=== PATIENT | male | born 1995 | race Caucasian/White ===

== ENCOUNTER 2018-05-13 19:52 | Emergency (ER) | payer OTHER ==
[2018-05-13 20:09] VITALS: BP 147/83
--- NOTE | 2018-05-13 20:09 | EDPHY ---
H & P Time Seen by Provider: 05/13/18 20:08 HPI/ROS: Chief complaint. Red painful bump HPI. 22-year-old male with painful red bump on his abdomen for 2 days. Yesterday squeeze of popped it got some pus out but today it has increased in size with expanding redness around the bump. Increase in pain. No fever. No trauma or injury. ROS 10 systems were reviewed and negative with the exception of the elements mentioned in the history of present illness Past Medical/Surgical History: Healthy Social History: Single daily smoker, no alcohol Smoking Status: Heavy smoker Physical Exam: General Appearance: Alert pleasant well-developed male mild distress vital signs stable Eyes: Pupils equal and round no pallor or injection. ENT, Mouth: Mucous membranes are moist. Respiratory: There are no retractions, lungs are clear to auscultation. Cardiovascular: Regular rate and rhythm. Gastrointestinal: Abdomen is soft and nontender, no masses, bowel sounds normal. Neurological: Awake and alert, sensory and motor exams grossly normal. Skin: 2 cm abscess on the right mid abdomen. Surrounding erythema. Musculoskeletal: Neck is supple nontender. Extremities symmetrical, full range of motion. Psychiatric: Patient is oriented X 3, there is no agitation. Constitutional: Initial Vital Signs Temperature (C) 36.9 C 05/13/18 20:05 Heart Rate 84 05/13/18 20:05 Respiratory Rate 16 05/13/18 20:05 Blood Pressure 147/83 H 05/13/18 20:05 O2 Sat (%) 96 05/13/18 20:05 O2 Delivery Mode Room Air Allergies/Adverse Reactions: No Known Allergies Allergy (Unverified 05/13/18 20:06) Home Medications: Medication Instructions Recorded Sulfamethox/Tmp 800/160 mg 1 tab PO BID #10 tab 05/13/18 [Bactrim Ds] Medical Decision Making Procedures: Procedure incision and drainage--after informed consent 1% lidocaine with epinephrine is infiltrated around the abscess. It is incised with a 11. Blade. It is probed with hemostats to break up loculations. It is irrigated with normal saline. Antibiotic ointment and Band-Aid are applied. Patient tolerates the procedure well ED Course/Re-evaluation: Bactrim orally in the ED Patient remained stable. He and I discussed treatment plan including criteria for return importance of follow-up and further evaluation. He expresses understanding and agreement Differential Diagnosis: Abscess on the abdominal wall. Likely MRSA. No evidence for systemic infection - Data Points Medications Given: Discontinued Medications Trimethoprim/Sulfamethoxazole (Bactrim Ds) 1 ea PO EDNOW ONE PRN Reason: Protocol Stop: 05/13/18 20:14 Last Admin: 05/13/18 20:23 Dose: 1 ea Departure - Departure Disposition: Home, Routine, Self-Care Clinical Impression: Abscess Condition: Good Instructions: Abscess (ED) Additional Instructions: Keep the bandage clean and dry. Keep the wound covered for the next 5 days. Daily cleaning with washcloth and water and then apply antibiotic ointment and bandage Bactrim antibiotic twice daily for 5 days Return for worsening symptoms including increased pain and fever Recheck in 2 days if not improving Referrals: NONE *PRIMARY CARE P,. [Primary Care Provider] - As per Instructions Prescriptions: Sulfamethox/Tmp 800/160 mg [Bactrim Ds] 1 tab PO BID #10 tab
[2018-05-13] MEDS ORDERED: SULFAMETHOX/TMP 800/160 MG 1 TAB PO ONE (20:13)
== END 2018-05-13 20:48 | disposition home or self-care (01) ==
LOC: CED 19:52
PROC: 0H97XZZ Drainage of Abdomen Skin, External Approach (ICD-10-PCS; principal; 2018-05-13)
DX: L02.211 Cutaneous abscess of abdominal wall (principal)
CPT/HCPCS: 99283-ER